=== PATIENT | male | born 1985 | race African-American/Black ===

== ENCOUNTER 2016-11-11 09:27 | Inpatient (IN) | payer OTHER ==
--- NOTE | 2016-11-11 10:00 | HP ---
CIWA Score - CIWA Score Nausea/Vomitin Muscle Tremors: 3 Anxiety: 4-Mod. Anxious/Guarded Agitation: 2 Paroxysmal Sweats: 3 Orientation: 0-Oriented Tacttile Disturbances: 0-None Auditory Disturbances: 0-None Visual Disturbances: 1-Very Mild Sensitivity Headache: 0-None Present CIWA-Ar Total Score: 18 Admission ROS BHS - HPI Chief Complaint: "I'm here because it is my last chance at work and I need to get better." Patient is here to Detox from Alcohol. Allergies/Adverse Reactions: Allergies Allergy/AdvReac Type Severity Reaction Status Date / Time No Known Allergies Allergy Verified 11/11/16 09:49 History of Present Illness: Pt. is a 31 YO male here to Detox from Alcohol. Pt. has had [address] admission [address] [facility]. Exam Limitations: No Limitations - Ebola screening Have you traveled outside of the country in the last 21 days: No Have you had contact with anyone from an Ebola affected area: No Have you been sick,other than usual withdrawal symptoms: No Do you have a fever: No - Review of Systems Constitutional: Diaphoresis, Fever, Loss of Appetite, Malaise, Night Sweats, Changes in sleep, Unintentional Wgt. Loss (Lost approx. 15 lbs. over last 2 months.) EENT: reports: Tearing, Tinnitus (Sometimes at night.), Nose Congestion, Sinus Pressure Respiratory: reports: Cough Cardiac: reports: No Symptoms Reported GI: reports: Diarrhea, Nausea, Poor Appetite, Vomiting, Indigestion : reports: No Symptoms Reported Musculoskeletal: reports: No Symptoms Reported Integumentary: reports: No Symptoms Reported Neuro: reports: Tremors Endocrine: reports: No Symptoms Reported Hematology: reports: No Symptoms Reported Psychiatric: reports: Judgement Intact, Mood/Affect Appropiate, Orientated x3, Anxious, Depressed Other Systems: Reviewed and Negative Patient History - Patient Medical History Hx Anemia: No Hx Asthma: No Hx Chronic Obstructive Pulmonary Disease (COPD): No Hx Cancer: No Hx Cardiac Disorders: No Hx Congestive Heart Failure: No Hx Hypertension: Yes (not on meds at present...WATER PILL IN THE PAST) Hx Hypercholesterolemia: Yes (NO MEDS AT PRESENT--WAS ON LIPITOR) Hx Pacemaker: No HX Cerebrovascular Accident: No Hx Seizures: No Hx Dementia: No Hx Diabetes: No Hx Gastrointestinal Disorders: No (ACID REFLUX- OTC ZANTAC; NONE CURRENTLY.) Hx Liver Disease: No Hx Genitourinary Disorders: No Hx Sexually Transmitted Disorders: Yes (hx of chlamydia (Treated). Genital Herpes.) Hx Renal Disease (ESRD): No Hx Thyroid Disease: No Hx Human Immunodeficiency Virus (HIV): No (NEGATIVE HX; Last Tested: 08/2016.) Hx Hepatitis C: No (Never Tested.) Hx Depression: Yes (No Treatment.) Hx Suicide Attempt: No (DENIES; PATIENT DENIES CURRENT SI / HI.) Hx Bipolar Disorder: No Hx Schizophrenia: No - Patient Surgical History Past Surgical History: No Hx Neurologic Surgery: No Hx Cataract Extraction: No Hx Cardiac Surgery: No Hx Lung Surgery: No Hx Breast Surgery: No Hx Breast Biopsy: No Hx Abdominal Surgery: No Hx Appendectomy: No Hx Cholecystectomy: No Hx Genitourinary Surgery: No Hx Orthopedic Surgery: No Anesthesia Reaction: No - PPD History Previous Implant?: Yes Documented Results: Negative w/o proof Implanted On Prior [facility] Admission?: Yes Date: 09/21/15 PPD to be Administered?: Yes - Reproductive History Patient is a Female of Child Bearing Age (11 -55 yrs old): No (PATIENT IS MALE.) - Smoking Cessation Smoking history: Current every day smoker Have you smoked in the past 12 months: Yes Aproximately how many cigarettes per day: 5 Cigars Per Day: 0 Hx Chewing Tobacco Use: No Initiated information on smoking cessation: No 'Breaking Loose' booklet given: 11/11/16 (GIVEN ON UNIT.) - Substance & Tx. History Hx Alcohol Use: Yes Hx Substance Use: Yes Substance Use Type: Alcohol Hx Substance Use Treatment: Yes (1 Previous Detox admission at [facility].) - Substances Abused Alcohol Route: Oral Frequency: Daily Amount used: liquor- 2 pints, beer- 2 cans Age of first use: 16 Date of Last Use: 11/10/16 Family Disease History - Family Disease History Family Disease History: Other: Grandparent (Alcoholism, .), Father (HTN) , Mother (HTN/STROKE-), Sister (HTN (due to ).) Admission Physical Exam S - Vital Signs Vital Signs: Vital Signs - 24 hr 11/11/16 09:44 Temperature 97.8 F Pulse Rate 87 Respiratory 20 Rate Blood Pressure 132/82 - Physical General Appearance: Yes: No Apparent Distress, Nourished, Appropriately Dressed , Tremorous, Anxious HEENTM: Yes: Hearing grossly Normal, Normocephalic, Normal Voice, SHON, Pharynx Normal Respiratory: Yes: Chest Non-Tender, Lungs Clear, No Respiratory Distress Neck: Yes: No masses,lesions,Nodules, Supple, Trachea in good position Breast: Yes: Breast Exam Deferred Cardiology: Yes: Regular Rhythm, Regular Rate, S1, S2 Abdominal: Yes: Normal Bowel Sounds, Non Tender, Flat, Soft Genitourinary: Yes: Within Normal Limits Back: Yes: Normal Inspection Musculoskeletal: Yes: full range of Motion, Gait Steady Extremities: Yes: Normal Range of Motion, Non-Tender, Tremors Neurological: Yes: Fully Oriented, Alert, Normal Mood/Affect, Normal Response Integumentary: Yes: Normal Color, Dry, Warm Lymphatic: Yes: Within Normal Limits - Diagnostic (1) Alcohol dependence with uncomplicated withdrawal Current Visit: Yes Status: Acute (2) Nicotine dependence Current Visit: Yes Status: Chronic Qualifiers: Nicotine product type: cigarettes Substance use status: uncomplicated Qualified Code(s): F17.210 - Nicotine dependence, cigarettes, uncomplicated (3) History of hypertension Current Visit: Yes Status: Chronic Cleared for Admission [facility] - Detox or Rehab [facility] Level of Care: Medically Managed Detox Regimen/Protocol: Librium [facility] Breath Alcohol Content Breath Alcohol Content: 0 Urine Drug Screen - Results Drug Screen Negative: Yes
[2016-11-11 10:03] VITALS: BMI 27.1
[2016-11-11] MEDS ORDERED: LOPERAMIDE HCL 2 MG CAPSULE PO PRN (10:24)
[2016-11-11] MEDS ORDERED: chlordiazePOXIDE HCL 25 MG CAPSULE PO ONE (10:24)
[2016-11-11] MEDS ORDERED: IBUPROFEN 400 MG TABLET (FP) PO PRN (10:24)
[2016-11-11] MEDS ORDERED: MAG HYDROX/AL HYDROX/SIMETH 30 ML UNIT-DOSE CUP PO PRN (10:24)
[2016-11-11] MEDS ORDERED: guaiFENesin/D-METHORPHAN HB 10 ML UNIT-DOSE CUPS PO PRN (10:24)
[2016-11-11] MEDS ORDERED: MENTHOL/PHENOL 1 EACH UD MM PRN (10:24)
[2016-11-11] MEDS ORDERED: ACETAMINOPHEN 325 MG TABLET (FP) PO PRN (10:24)
[2016-11-11] MEDS ORDERED: NICOTINE POLACRILEX 2 MG GUM BUC PRN (10:24)
[2016-11-11] MEDS ORDERED: hydrOXYzine PAMOATE 50 MG CAPSULE (FP) PO PRN (10:24)
[2016-11-11] MEDS ORDERED: MAGNESIUM CITRATE 300 ML BOTTLE PO PRN (10:24)
[2016-11-11] MEDS ORDERED: P-EPHED 60MG/TRIPROLIDI 2.5MG TABLET PO PRN (10:24)
[2016-11-11] MEDS ORDERED: chlordiazePOXIDE HCL 25 MG CAPSULE PO PRN (10:24)
[2016-11-11] MEDS ORDERED: MAGNESIUM HYDROX 2400MG/30ML ORAL SUSPENSION 30 ML CUP PO PRN (10:24)
[2016-11-11] MEDS: chlordiazePOXIDE HCL 25 MG CAPSULE PO SCH ×3 (11:15→22:32)
[2016-11-11] MEDS: NICOTINE 14 MG/24 HOURS TOPICAL PATCH TD SCH (11:17)
[2016-11-11 18:18] LABS: URINE APPEARANCE CLEAR; URINE BILIRUBIN NEGATIVE (NEGATIVE); URINE COLOR AMBER; URINE GLUCOSE (UA) NEGATIVE (NEGATIVE); URINE KETONE TRACE (NEGATIVE); URINE LEUK ESTERASE NEGATIVE (NEGATIVE); URINE NITRITE NEGATIVE (NEGATIVE); URINE PROTEIN NEGATIVE (NEGATIVE); URINE UROBILINOGEN 4.0 E.U/dl E.U./dl (0.2-1.0)
[2016-11-11 18:22] LABS: URINE BLOOD 1+ (NEGATIVE)
[2016-11-11 18:24] LABS: URINE MUCUS RARE; URINE RBC 4 /hpf (0-3); URINE WBC 2 /hpf (3-5)
[2016-11-11] MEDS: THIAMINE HCL 100 MG TABLET (FP) PO SCH (22:32)
[2016-11-11] MEDS: diphenhydrAMINE HCL 50 MG CAPSULE PO PRN (22:32)
[2016-11-12] MEDS: chlordiazePOXIDE HCL 25 MG CAPSULE PO SCH ×4 (05:37→22:23)
--- NOTE | 2016-11-12 09:10 | EKG ---
Test Reason : Blood Pressure : / mmHG Vent. Rate : 072 BPM Atrial Rate : 072 BPM P-R Int : 162 ms QRS Dur : 096 ms QT Int : 380 ms P-R-T Axes : 029 034 036 degrees QTc Int : 416 ms NORMAL SINUS RHYTHM NORMAL ECG NO PREVIOUS ECGS AVAILABLE Confirmed by LATA POLANCO MD ([id number]) on 11/12/2016 9:10:05 AM Referred By: Confirmed By:LATA POLANCO MD
[2016-11-12 10:01] LABS: MCH 25.1 pg (25.7-33.7); MCHC 32.8 g/dl (32.0-35.9); MEAN CELL VOLUME 76.7 fl (80-96); MEAN PLT VOLUME 9.6 fl (7.5-11.1); PLATELET COUNT 185 K/MM3 (134-434); RDW 16.9 % (11.9-15.9); WHITE BLOOD COUNT 5.3 K/mm3 (4.0-10.0)
[2016-11-12 10:20] LABS: ALK PHOS 186 U/L (45-117); ANION GAP 14 (8-16); BILIRUBIN,TOTAL 1.5 mg/dL (0.2-1.0); CALCIUM 8.9 mg/dL (8.5-10.1); CO2 28 mmol/L (21-32); COCKROFT - GAULT 149.79; CREATININE 0.9 mg/dL (0.7-1.3); GLUCOSE,RANDOM 94 mg/dL (74-106); SGOT/AST 298 U/L (15-37); SGPT/ALT 266 U/L (12-78); TOT PROT 7.4 g/dl (6.4-8.2)
[2016-11-12] MEDS: PRENATAL VITAMINS W/ FOLIC ACID TABLET (FP) PO SCH (10:38)
[2016-11-12] MEDS: NICOTINE 14 MG/24 HOURS TOPICAL PATCH TD SCH (10:41)
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
[2016-11-12] MEDS ORDERED: POTASSIUM CHLORIDE TABS 20 MEQ TABLET.ER (FP) PO ONE (14:47)
--- NOTE | 2016-11-12 14:52 | PN ---
S CIWA - CIWA Score Nausea/Vomitin-No Nausea/No Vomiting Muscle Tremors: 3 Anxiety: 4-Mod. Anxious/Guarded Agitation: 3 Paroxysmal Sweats: 3 Orientation: 0-Oriented Tacttile Disturbances: 0-None Auditory Disturbances: 0-None Visual Disturbances: 0-None Headache: 0-None Present CIWA-Ar Total Score: 13 BHS Progress Note (SOAP) Subjective: Sweating,anxiety,tremors,sweating,interrupted sleep,restless Objective: 11/12/16 14:50 Vital Signs - 8 hr 11/12/16 11/12/16 09:27 13:19 Temperature 96.9 F L 97.8 F Pulse Rate 114 H 102 H Respiratory 18 18 Rate Blood Pressure 121/83 142/99 Laboratory Tests 11/11/16 11/12/16 11/12/16 18:00 07:00 07:00 WBC 5.3 RBC 5.52 Hgb 13.9 D Hct 42.4 D MCV 76.7 L MCHC 32.8 RDW 16.9 H D Plt Count 185 D MPV 9.6 D Sodium 135 L Potassium 3.2 L Chloride 93 L Carbon Dioxide 28 Anion Gap 14 BUN 8 D Creatinine 0.9 Creat Clearance w eGFR > 60 Random Glucose 94 Calcium 8.9 Total Bilirubin 1.5 H D AST 298 H D ALT 266 H Alkaline Phosphatase 186 H D Total Protein 7.4 Albumin 4.0 Urine Color Letty Urine Appearance Clear Urine pH 6.0 Ur Specific [place] 1.010 Urine Protein Negative Urine Glucose (UA) Negative Urine Ketones Trace H Urine Blood 1+ H Urine Nitrite Negative Urine Bilirubin Negative Urine Urobilinogen 4.0 e.u/dl Ur Leukocyte Esterase Negative Urine RBC 4 Urine WBC 2 Urine Mucus Rare RPR Titer 11/12/16 07:00 WBC RBC Hgb Hct MCV MCHC RDW Plt Count MPV Sodium Potassium Chloride Carbon Dioxide Anion Gap BUN Creatinine Creat Clearance w eGFR Random Glucose Calcium Total Bilirubin AST ALT Alkaline Phosphatase Total Protein Albumin Urine Color Urine Appearance Urine pH Ur Specific [place] Urine Protein Urine Glucose (UA) Urine Ketones Urine Blood Urine Nitrite Urine Bilirubin Urine Urobilinogen Ur Leukocyte Esterase Urine RBC Urine WBC Urine Mucus RPR Titer Nonreactive labs noted,repeat labs on 11/14 Assessment: 11/12/16 14:51 Withdrawal sx. Plan: Continue detox
[2016-11-12] MEDS: POTASSIUM CHLORIDE TABS 20 MEQ TABLET.ER (FP) PO SCH (22:24)
[2016-11-12] MEDS: THIAMINE HCL 100 MG TABLET (FP) PO SCH (22:24)
[2016-11-12] MEDS: diphenhydrAMINE HCL 50 MG CAPSULE PO PRN (22:24)
[2016-11-13] MEDS: chlordiazePOXIDE HCL 25 MG CAPSULE PO SCH (05:33)
[2016-11-13] MEDS: PRENATAL VITAMINS W/ FOLIC ACID TABLET (FP) PO SCH (10:32)
[2016-11-13] MEDS: NICOTINE 14 MG/24 HOURS TOPICAL PATCH TD SCH (10:32)
[2016-11-13] MEDS: chlordiazePOXIDE 5 MG CAPSULE PO SCH ×3 (10:32→22:41)
[2016-11-13] MEDS: POTASSIUM CHLORIDE TABS 20 MEQ TABLET.ER (FP) PO SCH ×2 (10:32→22:41)
--- NOTE | 2016-11-13 14:04 | PN ---
[facility] CIWA - CIWA Score Nausea/Vomitin-No Nausea/No Vomiting Muscle Tremors: 3 Anxiety: 4-Mod. Anxious/Guarded Agitation: 3 Paroxysmal Sweats: 3 Orientation: 0-Oriented Tacttile Disturbances: 0-None Auditory Disturbances: 0-None Visual Disturbances: 0-None Headache: 0-None Present CIWA-Ar Total Score: 13 S Progress Note (SOAP) Subjective: Anxiety,tremors,sweating,interrupted sleep,restless Objective: 11/13/16 14:03 Vital Signs - 8 hr 11/13/16 11/13/16 11/13/16 06:43 10:03 13:14 Temperature 98.1 F 98.6 F 96.0 F L Pulse Rate 104 H 103 H 103 H Respiratory 18 20 20 Rate Blood Pressure 131/93 149/103 142/100 11/13/16 13:16 Temperature Pulse Rate Respiratory Rate Blood Pressure 147/102 Laboratory Last Values WBC 5.3 K/mm3 (4.0-10.0) 11/12/16 07:00 RBC 5.52 M/mm3 (4.00-5.60) 11/12/16 07:00 Hgb 13.9 GM/dL (11.7-16.9) D 11/12/16 07:00 Hct 42.4 % (35.4-49) D 11/12/16 07:00 MCV 76.7 fl (80-96) L 11/12/16 07:00 MCHC 32.8 g/dl (32.0-35.9) 11/12/16 07:00 RDW 16.9 % (11.9-15.9) H D 11/12/16 07:00 Plt Count 185 K/MM3 (134-434) D 11/12/16 07:00 MPV 9.6 fl (7.5-11.1) D 11/12/16 07:00 Sodium 135 mmol/L (136-145) L 11/12/16 07:00 Potassium 3.2 mmol/L (3.5-5.1) L 11/12/16 07:00 Chloride 93 mmol/L (98-107) L 11/12/16 07:00 Carbon Dioxide 28 mmol/L (21-32) 11/12/16 07:00 Anion Gap 14 (8-16) 11/12/16 07:00 BUN 8 mg/dL (7-18) D 11/12/16 07:00 Creatinine 0.9 mg/dL (0.7-1.3) 11/12/16 07:00 Creat Clearance w eGFR > 60 (>60) 11/12/16 07:00 Random Glucose 94 mg/dL (74-106) 11/12/16 07:00 Calcium 8.9 mg/dL (8.5-10.1) 11/12/16 07:00 Total Bilirubin 1.5 mg/dL (0.2-1.0) H D 11/12/16 07:00 AST 298 U/L (15-37) H D 11/12/16 07:00 ALT 266 U/L (12-78) H 11/12/16 07:00 Alkaline Phosphatase 186 U/L (45-117) H D 11/12/16 07:00 Total Protein 7.4 g/dl (6.4-8.2) 11/12/16 07:00 Albumin 4.0 g/dl (3.4-5.0) 11/12/16 07:00 Urine Color Letty 11/11/16 18:00 Urine Appearance Clear 11/11/16 18:00 Urine pH 6.0 (5.0-8.0) 11/11/16 18:00 Ur Specific [place] 1.010 (1.005-1.025) 11/11/16 18:00 Urine Protein Negative (NEGATIVE) 11/11/16 18:00 Urine Glucose (UA) Negative (NEGATIVE) 11/11/16 18:00 Urine Ketones Trace (NEGATIVE) H 11/11/16 18:00 Urine Blood 1+ (NEGATIVE) H 11/11/16 18:00 Urine Nitrite Negative (NEGATIVE) 11/11/16 18:00 Urine Bilirubin Negative (NEGATIVE) 11/11/16 18:00 Urine Urobilinogen 4.0 e.u/dl E.U./dl (0.2-1.0) 11/11/16 18:00 Ur Leukocyte Esterase Negative (NEGATIVE) 11/11/16 18:00 Urine RBC 4 /hpf (0-3) 11/11/16 18:00 Urine WBC 2 /hpf (3-5) 11/11/16 18:00 Urine Mucus Rare 11/11/16 18:00 RPR Titer Nonreactive (NONREACTIVE) 11/12/16 07:00 Hepatitis C Antibody <0.1 s/co ratio (0.0-0.9) 11/11/16 07:00 labs noted Assessment: 11/13/16 14:03 Withdrawal sx. Plan: Continue detox
[2016-11-13] MEDS: diphenhydrAMINE HCL 50 MG CAPSULE PO PRN (22:41)
[2016-11-13] MEDS: THIAMINE HCL 100 MG TABLET (FP) PO SCH (22:41)
[2016-11-14] MEDS: chlordiazePOXIDE 5 MG CAPSULE PO SCH (05:27)
[2016-11-14] MEDS: chlordiazePOXIDE HCL 10 MG CAPSULE PO SCH ×3 (10:42→22:50)
[2016-11-14] MEDS: PRENATAL VITAMINS W/ FOLIC ACID TABLET (FP) PO SCH (10:42)
[2016-11-14] MEDS: POTASSIUM CHLORIDE TABS 20 MEQ TABLET.ER (FP) PO SCH ×2 (10:42→22:50)
[2016-11-14] MEDS: NICOTINE 14 MG/24 HOURS TOPICAL PATCH TD SCH (10:42)
--- NOTE | 2016-11-14 10:43 | PN ---
BHS Progress Note (SOAP) Subjective: ALERT,INTERRUPTED SLEEP Objective: 11/14/16 10:42 Vital Signs Temperature 97.9 F 11/14/16 09:42 Pulse Rate 99 H 11/14/16 09:42 Respiratory Rate 18 11/14/16 09:42 Blood Pressure 135/95 11/14/16 09:42 O2 Sat by Pulse Oximetry (%) Assessment: 11/14/16 10:43 WITHDRAWAL SYMPTOM Plan: CONTINUE DETOX,DISCHARGE IN AM
[2016-11-14] MEDS: THIAMINE HCL 100 MG TABLET (FP) PO SCH (22:50)
[2016-11-14] MEDS: diphenhydrAMINE HCL 50 MG CAPSULE PO PRN (22:50)
[2016-11-15] MEDS: chlordiazePOXIDE HCL 10 MG CAPSULE PO SCH (05:32)
[2016-11-15] MEDS: PRENATAL VITAMINS W/ FOLIC ACID TABLET (FP) PO SCH (09:09)
[2016-11-15] MEDS: POTASSIUM CHLORIDE TABS 20 MEQ TABLET.ER (FP) PO SCH (09:10)
[2016-11-15 09:22] VITALS: BP 142/102; PULSE 87; TEMP 97
--- NOTE | 2016-11-15 13:30 | DS ---
[facility] Detox Discharge Summary Admission Date: 11/11/16 Discharge Date: 11/15/16 - History Present History: Alcohol Dependence Additional Comments: ADVISED PATIENT TO FOLLOW-UP WITH [facility] AFTER DISCHARGE FROM DETOX FOR GENERAL MEDICAL ASSESSMENT AND FOR ABNORMAL ADMISSION LAB VALUES. Pertinent Past History: HTN, Depression, GERD, Hypercholesterolemia. - Physical Exam Results Vital Signs: Vital Signs Temperature 97.0 F L 11/15/16 09:21 Pulse Rate 87 11/15/16 09:21 Respiratory Rate 18 11/15/16 09:21 Blood Pressure 142/102 11/15/16 09:21 O2 Sat by Pulse Oximetry (%) Pertinent Admission Physical Exam Findings: WITHDRAWAL SYMPTOMS. Laboratory Last Values WBC 5.3 K/mm3 (4.0-10.0) 11/12/16 07:00 RBC 5.52 M/mm3 (4.00-5.60) 11/12/16 07:00 Hgb 13.9 GM/dL (11.7-16.9) D 11/12/16 07:00 Hct 42.4 % (35.4-49) D 11/12/16 07:00 MCV 76.7 fl (80-96) L 11/12/16 07:00 MCHC 32.8 g/dl (32.0-35.9) 11/12/16 07:00 RDW 16.9 % (11.9-15.9) H D 11/12/16 07:00 Plt Count 185 K/MM3 (134-434) D 11/12/16 07:00 MPV 9.6 fl (7.5-11.1) D 11/12/16 07:00 Sodium 135 mmol/L (136-145) L 11/12/16 07:00 Potassium 3.2 mmol/L (3.5-5.1) L 11/12/16 07:00 Chloride 93 mmol/L (98-107) L 11/12/16 07:00 Carbon Dioxide 28 mmol/L (21-32) 11/12/16 07:00 Anion Gap 14 (8-16) 11/12/16 07:00 BUN 8 mg/dL (7-18) D 11/12/16 07:00 Creatinine 0.9 mg/dL (0.7-1.3) 11/12/16 07:00 Creat Clearance w eGFR > 60 (>60) 11/12/16 07:00 Random Glucose 94 mg/dL (74-106) 11/12/16 07:00 Calcium 8.9 mg/dL (8.5-10.1) 11/12/16 07:00 Total Bilirubin 1.5 mg/dL (0.2-1.0) H D 11/12/16 07:00 AST 298 U/L (15-37) H D 11/12/16 07:00 ALT 266 U/L (12-78) H 11/12/16 07:00 Alkaline Phosphatase 186 U/L (45-117) H D 11/12/16 07:00 Total Protein 7.4 g/dl (6.4-8.2) 11/12/16 07:00 Albumin 4.0 g/dl (3.4-5.0) 11/12/16 07:00 Urine Color Letty 11/11/16 18:00 Urine Appearance Clear 11/11/16 18:00 Urine pH 6.0 (5.0-8.0) 11/11/16 18:00 Ur Specific [place] 1.010 (1.005-1.025) 11/11/16 18:00 Urine Protein Negative (NEGATIVE) 11/11/16 18:00 Urine Glucose (UA) Negative (NEGATIVE) 11/11/16 18:00 Urine Ketones Trace (NEGATIVE) H 11/11/16 18:00 Urine Blood 1+ (NEGATIVE) H 11/11/16 18:00 Urine Nitrite Negative (NEGATIVE) 11/11/16 18:00 Urine Bilirubin Negative (NEGATIVE) 11/11/16 18:00 Urine Urobilinogen 4.0 e.u/dl E.U./dl (0.2-1.0) 11/11/16 18:00 Ur Leukocyte Esterase Negative (NEGATIVE) 11/11/16 18:00 Urine RBC 4 /hpf (0-3) 11/11/16 18:00 Urine WBC 2 /hpf (3-5) 11/11/16 18:00 Urine Mucus Rare 11/11/16 18:00 RPR Titer Nonreactive (NONREACTIVE) 11/12/16 07:00 Hepatitis C Antibody <0.1 s/co ratio (0.0-0.9) 11/11/16 07:00 LABS NOTED. - Treatment Hospital Course: Detox Protocol Followed, Detoxed Safely, Responded well, Discharged Condition Good Patient has Accepted a Rehab Referral to: NO - PT. TO HOME AND THEN PURSUE OUTPATIENT PROGRAM. - Medication Discharge Medications: Ambulatory Orders Hydrochlorothiazide [Hctz -] 25 mg PO DAILY 09/20/15 - Diagnosis (1) Alcohol dependence with uncomplicated withdrawal Status: Acute (2) Nicotine dependence Status: Chronic Qualifiers: Nicotine product type: cigarettes Substance use status: uncomplicated Qualified Code(s): F17.210 - Nicotine dependence, cigarettes, uncomplicated (3) History of hypertension Status: Chronic (4) Hypercholesterolemia Status: Chronic (5) GERD (gastroesophageal reflux disease) Status: Chronic Qualifiers: Esophagitis presence: without esophagitis Qualified Code(s): K21.9 - Gastro-esophageal reflux disease without esophagitis - AMA Did Patient Leave Against Medical Advice: No
== END 2016-11-15 09:17 | disposition home or self-care (01) | DRG 751 ==
LOC: YASAS 09:27 → Y3N 10:15
PROVIDERS: ADMIT Internal Medicine; ATTEND Internal Medicine
PROC: HZ2ZZZZ Detoxification Services for Substance Abuse Treatment (ICD-10-PCS; principal; 2016-11-11)
DX: F10.230 Alcohol dependence with withdrawal, uncomplicated (principal); F17.210 Nicotine dependence, cigarettes, uncomplicated; I10 Essential (primary) hypertension; E78.00 Pure hypercholesterolemia, unspecified; K21.9 Gastro-esophageal reflux disease without esophagitis; Z87.438 Personal history of other diseases of male genital organs
CPT/HCPCS: 36415; 80053; 81003; 81015; 85027; 86593; 93005; 93010

== ENCOUNTER 2021-05-19 16:11 | Inpatient (IN) | payer OTHER ==
[2021-05-19 18:44] VITALS: BMI 29.0
[2021-05-19] MEDS ORDERED: cloNIDine HCL 0.1 MG TABLET PO ONE (18:51)
[2021-05-19] MEDS ORDERED: cloNIDine HCL 0.1 MG TABLET ONE (19:01)
[2021-05-19] MEDS ORDERED: NICOTINE 10 MG CARTRIDGE (INHALER) IH PRN (19:15)
[2021-05-19] MEDS ORDERED: LORazepam 1 MG TABLET PO PRN (19:15)
[2021-05-19] MEDS ORDERED: LORazepam 2 MG TABLET PO ONE (19:15)
[2021-05-19] MEDS ORDERED: IBUPROFEN 400 MG TABLET (FP) PO PRN (19:15)
[2021-05-19] MEDS ORDERED: MAG HYDROX/AL HYDROX/SIMETH 30 ML UNIT-DOSE CUP PO PRN (19:15)
[2021-05-19] MEDS ORDERED: MAGNESIUM CITRATE 300 ML BOTTLE PO PRN (19:15)
[2021-05-19] MEDS ORDERED: ONDANSETRON *ODT* 4 MG TABLET SL PRN (19:15)
[2021-05-19] MEDS ORDERED: MAGNESIUM HYDROX 2400MG/30ML ORAL SUSPENSION 30 ML CUP PO PRN (19:15)
[2021-05-19] MEDS ORDERED: NICOTINE POLACRILEX 2 MG GUM BUC PRN (19:15)
[2021-05-19] MEDS ORDERED: ACETAMINOPHEN 325 MG TABLET (FP) PO PRN ×2 (19:15)
[2021-05-19] MEDS ORDERED: MENTHOL/PHENOL 1 EACH UD MM PRN (19:15)
[2021-05-19] MEDS ORDERED: BISMUTH SUBSALICYLATE 524 MG/30 ML PO PRN (19:15)
[2021-05-19] MEDS: THIAMINE HCL 100 MG TABLET (FP) PO SCH (22:56)
[2021-05-19] MEDS: MELATONIN 5 MG TABLETS PO SCH (22:56)
[2021-05-19] MEDS: LORazepam 2 MG TABLET PO SCH (22:56)
[2021-05-19] MEDS: INSULIN SLIDING SCALE (NOVOLOG) 1 VIAL SQ SCH (22:58)
[2021-05-20] MEDS: hydrOXYzine PAMOATE 25 MG CAPSULE (FP) PO PRN (05:28)
[2021-05-20] MEDS: LORazepam 2 MG TABLET PO SCH ×4 (05:29→22:24)
[2021-05-20] MEDS: METHOCARBAMOL 500 MG TABLET PO PRN (05:29)
[2021-05-20] MEDS: INSULIN SLIDING SCALE (NOVOLOG) 1 VIAL SQ SCH ×4 (06:00→22:23)
[2021-05-20] MEDS: PRENATAL VITAMINS W/ FOLIC ACID TABLET (FP) PO SCH (10:27)
[2021-05-20] MEDS: HYDROCHLOROTHIAZIDE 25 MG TABLET (FP) PO SCH (10:29)
[2021-05-20 12:30] LABS: HEMATOCRIT 32.7 % (35.4-49); HEMOGLOBIN 10.6 GM/dL (11.7-16.9); MCH 25.4 pg (25.7-33.7); MCHC 32.3 g/dl (32.0-35.9); MEAN CELL VOLUME 78.6 fl (80-96); MEAN PLT VOLUME 7.7 fl (7.5-11.1); PLATELET COUNT 554 10^3/uL (134-434); RBC 4.16 M/mm3 (4.00-5.60); RDW 17.6 % (11.9-15.9); WHITE BLOOD COUNT 5.1 K/mm3 (4.0-10.0)
[2021-05-20 12:42] LABS: ALBUMIN 3.4 g/dl (3.4-5.0)
[2021-05-20 12:43] LABS: BLOOD UREA NITROGEN 6.9 mg/dL (7-18); CREATININE 0.9 mg/dL (0.55-1.3)
[2021-05-20 12:44] LABS: TOT PROT 7.4 g/dl (6.4-8.2)
[2021-05-20 12:50] LABS: BILIRUBIN,TOTAL 0.4 mg/dL (0.2-1)
[2021-05-20] MEDS ORDERED: METOPROLOL TARTRATE 25 MG TABLET (FP) PO SCH (15:00)
[2021-05-20] MEDS: METOPROLOL TARTRATE 25 MG TABLET (FP) PO SCH (15:28)
[2021-05-20] MEDS ORDERED: cloNIDine HCL 0.1 MG TABLET PO ONE (19:15)
[2021-05-20] MEDS ORDERED: INSULIN GLARGINE SQ SCH (22:00)
[2021-05-20] MEDS ORDERED: ELIQUIS 5 MG PO SCH (22:00)
[2021-05-20] MEDS: APIXABAN 5 MG TABLET PO SCH (22:23)
[2021-05-20] MEDS: ATORVASTATIN CA 40 MG TABLET (FP) PO SCH (22:23)
[2021-05-20] MEDS: MELATONIN 5 MG TABLETS PO SCH (22:23)
[2021-05-20] MEDS: THIAMINE HCL 100 MG TABLET (FP) PO SCH (22:23)
[2021-05-20] MEDS: INSULIN (LEVEMIR) 100 UNITS/ML UNITS SQ SCH (22:26)
[2021-05-21] MEDS: LORazepam 1 MG TABLET PO SCH ×4 (06:01→22:36)
[2021-05-21] MEDS: INSULIN SLIDING SCALE (NOVOLOG) 1 VIAL SQ SCH ×4 (06:16→21:37)
[2021-05-21] MEDS ORDERED: CRESTOR 20 MG PO SCH (10:00)
[2021-05-21] MEDS: APIXABAN 5 MG TABLET PO SCH ×2 (10:20→22:37)
[2021-05-21] MEDS: LOSARTAN POTASSIUM 50 MG TABLET PO SCH (10:20)
[2021-05-21] MEDS: NIFEdipine E.R 60 MG TABLET PO SCH (10:21)
[2021-05-21] MEDS: PANTOPRAZOLE 40 MG TABLET PO SCH (10:21)
[2021-05-21] MEDS: PRENATAL VITAMINS W/ FOLIC ACID TABLET (FP) PO SCH (10:21)
[2021-05-21] MEDS: HYDROCHLOROTHIAZIDE 25 MG TABLET (FP) PO SCH (10:21)
[2021-05-21] MEDS: METOPROLOL TARTRATE 25 MG TABLET (FP) PO SCH (10:21)
[2021-05-21] MEDS: METHOCARBAMOL 500 MG TABLET PO PRN (22:35)
[2021-05-21] MEDS: hydrOXYzine PAMOATE 25 MG CAPSULE (FP) PO PRN (22:36)
[2021-05-21] MEDS: ATORVASTATIN CA 40 MG TABLET (FP) PO SCH (22:36)
[2021-05-21] MEDS: MELATONIN 5 MG TABLETS PO SCH (22:36)
[2021-05-21] MEDS: THIAMINE HCL 100 MG TABLET (FP) PO SCH (22:36)
[2021-05-21] MEDS: INSULIN (LEVEMIR) 100 UNITS/ML UNITS SQ SCH (22:39)
[2021-05-22] MEDS ORDERED: LORazepam 0.5 MG TABLET PO PRN
[2021-05-22] MEDS: LORazepam 0.5 MG TABLET PO SCH ×2 (06:11→10:10)
[2021-05-22] MEDS: INSULIN SLIDING SCALE (NOVOLOG) 1 VIAL SQ SCH ×2 (06:15→10:45)
[2021-05-22 08:45] VITALS: TEMP 97.1
[2021-05-22 10:07] VITALS: BP 127/85; PULSE 125
[2021-05-22] MEDS: LOSARTAN POTASSIUM 50 MG TABLET PO SCH (10:09)
[2021-05-22] MEDS: METOPROLOL TARTRATE 25 MG TABLET (FP) PO SCH (10:09)
[2021-05-22] MEDS: APIXABAN 5 MG TABLET PO SCH (10:09)
[2021-05-22] MEDS: HYDROCHLOROTHIAZIDE 25 MG TABLET (FP) PO SCH (10:10)
[2021-05-22] MEDS: PRENATAL VITAMINS W/ FOLIC ACID TABLET (FP) PO SCH (10:10)
[2021-05-22] MEDS: PANTOPRAZOLE 40 MG TABLET PO SCH (10:10)
[2021-05-22] MEDS: NIFEdipine E.R 60 MG TABLET PO SCH (10:10)
[2021-05-23] MEDS ORDERED: LORazepam 0.5 MG TABLET PO ONE (05:00)
== END 2021-05-22 10:15 | disposition home or self-care (01) | DRG 775 ==
LOC: YASAS 16:11 → Y3N 20:03
PROVIDERS: ADMIT Allergy & Immunology; ATTEND Allergy & Immunology
PROC: HZ2ZZZZ Detoxification Services for Substance Abuse Treatment (ICD-10-PCS; principal; 2021-05-19)
DX: F10.230 Alcohol dependence with withdrawal, uncomplicated (principal); F17.210 Nicotine dependence, cigarettes, uncomplicated; E78.5 Hyperlipidemia, unspecified; E10.9 Type 1 diabetes mellitus without complications; Z79.4 Long term (current) use of insulin; I10 Essential (primary) hypertension; K21.9 Gastro-esophageal reflux disease without esophagitis; Z86.2 Personal history of diseases of the blood and blood-forming organs and certain disorders involving the immune mechanism; Z87.19 Personal history of other diseases of the digestive system; Z86.19 Personal history of other infectious and parasitic diseases
CPT/HCPCS: 36415; 80053; 82962; 85027; 86780; C9803; J0735; Q0162; U0003; U0005